=== PATIENT | female | born 1950 | race Caucasian/White ===

== ENCOUNTER 2016-10-24 07:33 | Observation (INO) | payer MEDICARE ==
[2016-10-20 20:11] LABS: HEMATOCRIT 26.1 % (36.0-48.0); HEMOGLOBIN 8.2 g/dL (12.0-16.0)
[2016-10-20 20:22] LABS: CALCIUM, SERUM 8.2 MG/DL (8.5-10.4); CHLORIDE, SERUM 107 MMOL/L (96-112); CREATININE 0.66 MG/DL (0.55-1.02); GFR AFRICAN AMERICAN 107 ML/MIN (>=60); GFR NON AFRICAN AMERICAN 93 ML/MIN (>=60); SODIUM, SERUM 142 MMOL/L (135-148)
[2016-10-20 20:28] LABS: BUN (BLOOD UREA NITROGEN) 17 MG/DL (6-23); CO2 (CARBON DIOXIDE) 27 MMOL/L (24-34); GLUCOSE, SERUM 60 MG/DL (60-99); POTASSIUM, SERUM 4.3 MMOL/L (3.5-5.3)
[2016-10-21 09:56] LABS: BASOPHILS 0.6 %; BASOPHILS ABSOLUTE 0.03 10/3/uL (0.0-0.16); EOSINOPHILS 6.5 %; EOSINOPHILS ABSOLUTE 0.34 10/3/uL (0.0-0.53); IMMATURE GRANULOCYTES 0.2 %; IMMATURE GRANULOCYTES ABSOLUTE 0.01 10/3/uL (0.0-0.11); LYMPHOCYTES 23.4 %; LYMPHOCYTES ABSOLUTE 1.22 10/3/uL (0.67-4.30); MEAN CORPUS HGB CONC 30.9 g/dL (32.0-36.0); MEAN CORPUSCULAR HEMOGLOB 29.3 pg (26.0-34.0); MEAN CORPUSCULAR VOLUME 94.9 fL (80-100); MEAN PLATELET VOLUME 10.8 fL (9.2-13.0); MONOCYTES 9.2 %; MONOCYTES ABSOLUTE 0.48 10/3/uL (0.21-1.20); NEUTROPHILS 60.1 %; NEUTROPHILS ABSOLUTE 3.13 10/3/uL (2.02-8.40); PLATELET COUNT 239 10/3/uL (150-400); RBC DISTRIBUTION WIDTH 17.6 % (12.0-16.0); WHITE BLOOD CELLS 5.2 10/3/uL (4.5-10.5)
[2016-10-21 09:57] LABS: MANUAL DIFF NO %; RED CELL COUNT 2.76 10/6/uL (4.0-5.6)
--- NOTE | ~2016-10-24 | OP ---
Record Of Operation [facility] [address] [place]. [address] NAME: CHUYITA GONG : 52 STATUS : DIS Danielle PAT#: [id number] AGE: 66 ADM/REG DATE : 10/24/16 MR#: [id number] REPORT SERV DATE: 11/25/16 DICTATED BY: RAUL SIMS DATE: 11/25/16 REPORT STATUS : Draft TRANSCRIBED BY: MODL DATE: 11/25/16 DATE OF PROCEDURE: PREOPERATIVE DIAGNOSIS: Osteomyelitis, left mandible; cellulitis; abscess; status post mandibular fracture. POSTOPERATIVE DIAGNOSIS: Osteomyelitis, left mandible; cellulitis; abscess; status post mandibular fracture. OPERATION: Debridement of fracture and removal of a bone plate, excision of cutaneous fistula and closure. DESCRIPTION OF PROCEDURE: After induction of general endotracheal anesthesia, face and mouth were prepped and draped in the usual manner. Left mandibular block was administered utilizing 0.5% Marcaine with 1:200,000 epinephrine solution. Following this, an incision was made intraorally in the mandibular vestibule on the left side. The mucoperiosteum was reflected laterally exposing the titanium bone plate, which had been previously used to stabilize the mandibular fracture. The plate was removed and granulomatous material was removed with a curette and the wound was irrigated with normal saline. Following this, attention was turned to the left submandibular space. Skin and the fistulous tract was elliptically excised, carried down to bone and debrided with a curette again. The fistula was closed externally with 4-0 Vicryl suture. The wound was irrigated with normal saline and oral wound again closed with 3-0 chromic gut. The patient was allowed to awaken on inflated endotracheal tube and returned to recovery in satisfactory condition. The patient received 2 g of Ancef and 6 mg of Decadron intraoperatively. WT/MODL Raul Sims D.D.S. / [id number] CC: Rajesh Mari M.D.
[~2016-10-24 07:33] MED LIST: ATV.5 PO; BACDS PO; CLEOCIN300 MG PO; ESTRACE1 MG PO; FOLIC PO; HYDROCHLOROT25 MG PO; KDUR20 PO; KLOR-CON M2020 MEQ PO; LEVOTHYROXIN75 MCG PO; NEUR300 PO; NORCO1 TA2 PO; PROBIOTIC; PROZ10 PO; TOPXL25 PO; VITAMIN B-121000 MC1 PO; VITAMIN B-1500 MG PO
[2016-10-24 08:05] LABS: BASOPHILS 0.5 %; BASOPHILS ABSOLUTE 0.02 10/3/uL (0.0-0.16); EOSINOPHILS 5.6 %; EOSINOPHILS ABSOLUTE 0.21 10/3/uL (0.0-0.53); HEMATOCRIT 26.2 % (36.0-48.0); HEMOGLOBIN 8.4 g/dL (12.0-16.0); IMMATURE GRANULOCYTES 0.3 %; IMMATURE GRANULOCYTES ABSOLUTE 0.01 10/3/uL (0.0-0.11); LYMPHOCYTES 36.8 %; LYMPHOCYTES ABSOLUTE 1.39 10/3/uL (0.67-4.30); MEAN CORPUS HGB CONC 32.1 g/dL (32.0-36.0); MEAN CORPUSCULAR HEMOGLOB 29.9 pg (26.0-34.0); MEAN CORPUSCULAR VOLUME 93.2 fL (80-100); MEAN PLATELET VOLUME 10.6 fL (9.2-13.0); MONOCYTES 12.2 %; MONOCYTES ABSOLUTE 0.46 10/3/uL (0.21-1.20); NEUTROPHILS 44.6 %; NEUTROPHILS ABSOLUTE 1.69 10/3/uL (2.02-8.40); PLATELET COUNT 201 10/3/uL (150-400); RBC DISTRIBUTION WIDTH 17.2 % (12.0-16.0); RED CELL COUNT 2.81 10/6/uL (4.0-5.6); WHITE BLOOD CELLS 3.8 10/3/uL (4.5-10.5)
[2016-10-24 08:06] LABS: MANUAL DIFF NO %
== END 2016-10-25 11:17 | disposition home or self-care (01) ==
LOC: SDC 07:33 → PACU 11:36 → 4SO 15:21
PROVIDERS: Oral & Maxillofacial Surgery
PROC: 0NBV0ZZ Excision of Left Mandible, Open Approach (ICD-10-PCS; principal; 2016-10-24 08:45)
DX: S02.609A Fracture of mandible, unspecified, initial encounter for closed fracture (principal); I10 Essential (primary) hypertension; I48.91 Unspecified atrial fibrillation; Z86.73 Personal history of transient ischemic attack (TIA), and cerebral infarction without residual deficits; Z88.0 Allergy status to penicillin; Z88.2 Allergy status to sulfonamides; Z98.84 Bariatric surgery status; Z88.5 Allergy status to narcotic agent; Z90.49 Acquired absence of other specified parts of digestive tract; Z95.1 Presence of aortocoronary bypass graft
CPT/HCPCS: 11044; G0378; 36415; 80048; 85014; 85018; 85025; 86850; 86900; 86901; 87015; 87070; 87075; 87077; 87102; 87116; 87186; 88300; 88305; 93005; 96374; 96376; A9270-GY; J0690; J1170; J2250; J2405; J2710; J3010